=== PATIENT | male | born 1955 | race Caucasian/White ===

== ENCOUNTER 2024-02-14 16:23 | Emergency (ER) | payer MEDICARE ==
--- NOTE | 2024-02-14 16:51 | ED ---
Male Urogenital HPI - General Chief complaint: Urogenital Stated complaint: Post-op pain Time Seen by Provider: 02/14/24 16:40 Source: patient, RN notes reviewed Mode of arrival: ambulatory Limitations: no limitations - History of Present Illness Initial comments: 68-year-old male presenting with urinary retention x 5 hours. States he had a CT scan where he had to drink oral contrast at about 1:00 today. States since he drink the contrast he has not been able to urinate. States this has happened several times before and states he needs a catheter to relieve the bladder. Denies any other symptoms or health conditions. - Related Data Allergies Allergy/AdvReac Type Severity Reaction Status Date / Time No Known Allergies Allergy Verified 02/14/24 16:26 Review of Systems ROS Statement: Those systems with pertinent positive or pertinent negative responses have been documented in the HPI. ROS Other: All systems not noted in ROS Statement are negative. Past Medical History Smoking Status: Never smoker Past Alcohol Use History: None Reported Past Drug Use History: None Reported General Exam Limitations: no limitations General appearance: alert, in no apparent distress Head exam: Present: atraumatic, normocephalic, normal inspection Respiratory exam: Present: normal lung sounds bilaterally. Absent: respiratory distress, wheezes, rales, rhonchi, stridor Cardiovascular Exam: Present: regular rate, normal rhythm, normal heart sounds. Absent: systolic murmur, diastolic murmur, rubs, gallop, clicks GI/Abdominal exam: Present: soft, normal bowel sounds. Absent: distended, tenderness, guarding, rebound, rigid Neurological exam: Present: alert, oriented X3 Psychiatric exam: Present: normal affect, normal mood Skin exam: Present: warm, dry, intact, normal color. Absent: rash Course Vital Signs 02/14/24 16:23 Temperature 98.7 F Pulse Rate 90 Respiratory 18 Rate Blood Pressure 176/68 O2 Sat by Pulse 97 Oximetry Medical Decision Making - Medical Decision Making Was pt. sent in by a medical professional or institution (, PA, [employer], urgent care, hospital, or jail...) When possible be specific @ -No Did you speak to anyone other than the patient for history (EMS, parent, family, police, friend...)? What history was obtained from this source @ -Patient's supplemented history Did you review nursing and triage notes (agree or disagree)? Why? @ -I reviewed and agree with nursing and triage notes Were old charts reviewed (outside hosp., previous admission, EMS record, old EKG, old radiological studies, urgent care reports/EKG's, jail records)? Report findings @ -No old charts were reviewed Differential Diagnosis (chest pain, altered mental status, abdominal pain women, abdominal pain men, vaginal bleeding, weakness, fever, dyspnea, syncope, headache, dizziness, GI bleed, back pain, seizure, CVA, palpatations, mental health, musculoskeletal)? @ -Urinary retention, urinary tract infection, BPH EKG interpreted by me (3pts min.). @ -None X-rays interpreted by me (1pt min.). @ -None done CT interpreted by me (1pt min.). @ -None done U/S interpreted by me (1pt. min.). @ -None done What testing was considered but not performed or refused? (CT, X-rays, U/S, labs)? Why? @ -Patient declines bladder scan or labs at this time. Patient states this happens often and he only needs a catheter What meds were considered but not given or refused? Why? @ -None Did you discuss the management of the patient with other professionals (professionals i.e. , PA, [employer], lab, RT, psych nurse, transition social worker, seafood process worker, teacher, physics technical officer, leather case finisher)? Give summary @ -No Was smoking cessation discussed for >3mins.? @ -No Was critical care preformed (if so, how long)? @ -No Were there social determinants of health that impacted care today? How? (Homelessness, low income, unemployed, alcoholism, drug addiction, transportation, low edu. Level, literacy, decrease access to med. care, snf, rehab)? @ -No Was there de-escalation of care discussed even if they declined (Discuss DNR or withdrawal of care, Hospice)? DNR status @ -No What co-morbidities impacted this encounter? (DM, HTN, Smoking, COPD, CAD, Cancer, CVA, ARF, Chemo, Hep., AIDS, mental health diagnosis, sleep apnea, morbid obesity)? @ -None Was patient admitted / discharged? Hospital course, mention meds given and route, prescriptions, significant lab abnormalities, going to OR and other pertinent info. @ -Patient was discharged. Patient was seen and evaluated for urinary retention x 5 hours status post drinking oral contrast for CT scan. No red flag symptoms present upon examination. Alonzo catheter placed and approximately 800 mL of urine was expelled. Patient has urology appointment in 4 days, advised to attend appointment. Patient would like to be discharged at this time with catheter. Strict return/alarm symptoms discussed with patient in detail and patient shows understanding and agrees with plan. Patient discharged in stable condition. Case discussed with Dr. Rehman Undiagnosed new problem with uncertain prognosis? @ -No Drug Therapy requiring intensive monitoring for toxicity (Heparin, Nitro, Insulin, Cardizem)? @ -No Were any procedures done? @ -No Diagnosis/symptom? @ -Urinary retention Acute, or Chronic, or Acute on Chronic? @ -Acute Uncomplicated (without systemic symptoms) or Complicated (systemic symptoms)? @ -Uncomplicated Side effects of treatment? @ -No Exacerbation, Progression, or Severe Exacerbation? @ -No Poses a threat to life or bodily function? How? (Chest pain, [place], [place], pneumonia, PE, COPD, DKA, ARF, appy, cholecystitis, CVA, Diverticulitis, Homicidal, Suicidal, threat to staff... and all critical care pts) @ -Low likelihood Disposition Clinical Impression: Urinary retention Disposition: HOME SELF-CARE Condition: Stable Instructions (If sedation given, give patient instructions): Urinary Retention in Men (ED) Additional Instructions: Please follow-up for urology appointment on Saturday. Please return to the Emergency Department if symptoms worsen or any other concerns. Is patient prescribed a controlled substance at d/c from ED?: No Referrals: Yoseph Ramirez MD [Primary Care Provider] - 1-2 days Time of Disposition: 18:08
[2024-02-14 17:30] VITALS: RESP 18
[2024-02-14 18:59] VITALS: BP 150/87; PULSE 88; TEMP 98.6
== END 2024-02-14 18:34 | disposition home or self-care (01) ==
LOC: EC 16:23
DX: R33.9 Retention of urine, unspecified (principal)
CPT/HCPCS: 51702; 51798; 99283

== ENCOUNTER → 2024-02-14 | Outpatient (CLI) | payer MEDICARE ==
[2024-02-14 13:45] LABS: African American GFR (CKD) >90 (>60 ml/min/1.73 sqM); Blood Urea Nitrogen 15 mg/dL (9-20); Non-African American GFR(CKD) >90 (>60 ml/min/1.73 sqM)
--- NOTE | 2024-02-14 15:31 | CT ---
EXAMINATION TYPE: CT abdomen pelvis wo/w con DATE OF EXAM: 02/14/2024 COMPARISON: NONE HISTORY: 68-year-old male R31.0 BLADDER STONES AND GROSS HEMATURIA. TECHNIQUE: Contiguous axial scanning of the abdomen and pelvis before and after administration of 100 ml Isovue 300 IV contrast. Delayed images through the kidneys and coronal/sagittal reconstructions performed. CT DLP: 4281.70 mGycm Automated exposure control for dose reduction was used. FINDINGS: Heart normal size of the pericardial effusion. There is some pleural parenchymal scarring a t the left base. Nodular subpleural density here measures 1.9 cm it represent rounded atelectasis. Fo llow-up in 3 months to exclude the possibility of neoplasm. Postsurgical change of Nathalia-en-Y gastric bypass. Liver mildly enlarged at 18.0 cm. No focal liver lesion. Portal venous system is patent. No biliary d uctal dilatation. Gallbladder is mildly hydropic at 4.1 cm wide but without any wall thickening or pringle rrounding inflammation. Findings likely due to fasting state. Clinically correlate. Adrenal glands, spleen, and atrophic pancreas show no gross abnormality. A couple benign renal cortical cysts right kidney measuring 2.3 cm and 1.0 cm. Suspect a couple tiny renal cortical cysts on the left measuring up to 8 mm as well but too small for accurate CT character ization. No nephrolithiasis or hydronephrosis. No dilated small bowel, free fluid, or free air. No mesenteric or retroperitoneal lymphadenopathy. Normal appendix. Scattered moderate stool without pericolonic inflammatory change. Bladder urine distended with numerous dependent bladder stones measuring up to 1.1 cm. Prostate gland is enlarged measuring 6.5 cm wide. A few pelvic phleboliths. No abnormal fluid collection in the pel vis or pelvic lymphadenopathy seen. Bones: DISH within the lower thoracic spine. 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 Degenerative trace grade 1 anterolisthesis L4-L5. IMPRESSION: 1. NO NEPHROLITHIASIS OR HYDRONEPHROSIS. A FEW SCATTERED BENIGN RENAL CORTICAL CYSTS MEASURING UP TO 2.3 CM. 2. MARKED PROSTATOMEGALY UP TO 6.5 CM. Correlate with PSA values and patient's symptoms. 3. A number of dependent bladder stones measuring up to 1.1 cm. 4. Some pleural parenchymal scarring at the left base. A rounded subpleural opacity here measures 1.9 cm and may represent rounded atelectasis. Three-month follow-up CT chest to ensure stability and exc lude a neoplastic etiology.
== END | disposition home or self-care (01) ==
LOC: RADCTMAIN 12:49
PROVIDERS: ATTEND Urology
DX: N28.1 Cyst of kidney, acquired (principal); N40.0 Benign prostatic hyperplasia without lower urinary tract symptoms; N21.0 Calculus in bladder; R31.0 Gross hematuria
CPT/HCPCS: 82565; 84520; 74178; 36415; Q9967

== ENCOUNTER → 2024-03-04 | Outpatient (CLI) | payer MEDICARE ==
[2024-03-04 15:14] LABS: Basophils # (A) 0.05 X 10*3/uL (0.00-0.10); Basophils % (A) 0.7 %; Eosinophils # (A) 0.18 X 10*3/uL (0.04-0.35); Eosinophils % (A) 2.5 %; HCT 51.2 % (37.2-50.0); HGB 16.1 g/dL (12.0-17.0); Lymphocytes # (A) 1.61 X 10*3/uL (0.90-5.00); Lymphocytes % (A) 22.5 %; MCH 26.7 pg (27.0-32.0); MCHC 31.4 g/dL (32.0-37.0); MCV 84.8 FL (80.0-97.0); Mean Platelet Volume 11.1 FL (9.5-12.2); Monocytes # (A) 0.54 X 10*3/uL (0.20-1.00); Monocytes % (A) 7.6 %; NRBC Per 100 WBC 0 X 10*3/uL (0.00-0.01); Neutrophils # (A) 4.74 X 10*3/uL (1.80-7.70); Neutrophils % (A) 66.4 %; Platelet Count 240 X 10*3/uL (140-440); RBC 6.04 X 10*6/uL (4.10-5.60); RDW 14.4 % (11.5-14.5); WBC 7.14 X 10*3/uL (4.50-10.00)
[2024-03-04 15:25] LABS: BUN/Creat Ratio 24.88 Ratio (12.00-20.00); Blood Urea Nitrogen 19.9 mg/dL (9.0-27.0); Calcium 9.3 mg/dL (8.7-10.3); Carbon Dioxide 25.8 mmol/L (21.6-31.8); Chloride 102 mmol/L (96-109); Glucose 162 mg/dL (70-110); Potassium 4.5 mmol/L (3.5-5.5); Sodium 138 mmol/L (135-145)
--- NOTE | 2024-03-04 18:24 | MR ---
EXAMINATION TYPE: MR Prostate wo/w con DATE OF EXAM: 03/04/2024 7:54 AM COMPARISON: None. CLINICAL INDICATION:Male, 68 years old with history of R97.20 ELEVATED PSA; Elevated PSA TECHNIQUE: Multi-planar, multi-sequence imaging of the pelvis is performed prior to and following the uncomplicated administration of bolus intravenous gadolinium. CONTRAST: 11 Gadavist Interpretive Criteria: PI-RADS v2.1 SERUM PSA: PSA-=1.3, =0.9 SURGICAL PATHOLOGY: No data available. FINDINGS: Prostatic dimensions: 6.7 x 6.5 x 5.1 cm. Ellipsoid Volume:116.29 (PSA density=0.01 ng/mL/mL) CENTRAL GLAND (Central and Transition Zones/CZ+TZ): Multiple bilateral, heterogenous appearing hypertrophic stromal nodules, without suspicious lesion. M edian lobe hypertrophy with protrusion into the base of the bladder. (PI-RADS 2) PERIPHERAL ZONE (PZ): Bilateral linear, indistinct wedgelike areas of low ADC, and low T2 signal, No evidence of masslike a bnormality, or localized perfusional hypervascularity, to further suggest a focus of clinically signi ficant prostate cancer. (PI-RADS 2) SEMINAL VESICLES (SV): Symmetric and unremarkable. PERIPROSTATIC TISSUES: Unremarkable. LYMPH NODES: No enlarged pelvic lymph node. REMAINING PELVIS: Bladder wall is within normal limits given distention. Multiple bladder stones are seen in the bladde r lumen. No abnormal free or organized intrapelvic fluid collection. No pathologic bowel dilation or mural thickening. Colonic diverticula are present. No hernia visualized OSSEOUS STRUCTURES: No suspicious osseous abnormality. IMPRESSION: 1. No specific features for high-risk prostate cancer. Maximum PI-RADS score: 2. 2. Substantial BPH, estimated gland volume 116.29 (mL. 3. No suspicious osseous lesion. No lymphadenopathy. No evidence of prostate adenocarcinoma involving the periprostatic tissues. 4. Colonic diverticulosis. 5. Bladder stones.
== END | disposition home or self-care (01) ==
LOC: RADMRIMAIN 06:23
PROVIDERS: ATTEND Urology
DX: K57.30 Diverticulosis of large intestine without perforation or abscess without bleeding (principal); R97.20 Elevated prostate specific antigen [PSA]; N21.0 Calculus in bladder; N40.0 Benign prostatic hyperplasia without lower urinary tract symptoms
CPT/HCPCS: 80048; 85025; 87086; 72197; 36415; A9585

== ENCOUNTER 2024-03-12 05:52 | Day surgery (SDC) | payer MEDICARE ==
--- NOTE | 2024-03-09 22:26 | P.GSHP ---
History of Present Illness H&P Date: 03/09/24 Chief Complaint: Gross hematuria Patient is a 68-year-old white male with obstructive voiding symptoms. He has experienced intermittent gross hematuria for the past year, which he notes with activity particularly riding a lawnmower. CT scan shows bilateral renal cysts and bladder calculi measuring up to 11 mm in size. - Genitourinary (Male) Genitourinary: Reports dysuria, Reports hematuria, Reports urinary frequency Past Medical History Smoking Status: Never smoker Past Alcohol Use History: None Reported Past Drug Use History: None Reported Medications and Allergies Allergies Allergy/AdvReac Type Severity Reaction Status Date / Time No Known Allergies Allergy Verified 02/14/24 16:26 Surgical - Exam - General well developed, well nourished, no distress - Respiratory normal respiratory effort (The gait is working so hard to) - Abdomen Abdomen: soft, non tender, no guarding, no rigid, no rebound - Genitourinary normal penis with no external lesions, testicles non-tender (Hi) - Psychiatric oriented to time, oriented to person, oriented to place, speech is normal, memory intact Results - Imaging CT scan - abdomen: report reviewed, image reviewed Assessment and Plan (1) Calculus in bladder Status: Acute Code(s): N21.0 - CALCULUS IN BLADDER SNOMED Code(s): 81227589 Plan: Cystoscopy with cystolithotripsy. The procedure has been reviewed in detail with the patient. He has been made aware of potential risks, which include anesthesia, bleeding, infection, bladder perforation, and postoperative urinary retention
[2024-03-10 13:08] VITALS: BMI 33.0
[~2024-03-12 05:52] MED LIST: LIDOCAINE 1% (10MG/ML) FOR IV START INTRADERMA PRN
[2024-03-12 06:52] VITALS: TEMP 97.2
[2024-03-12] MEDS ORDERED: fentaNYL (PF) 50 MCG/ML 2 ML AMP IVP PRN (07:00)
[2024-03-12] MEDS ORDERED: MIDAZOLAM 2 MG/2 ML VIAL IV PRN (07:00)
[2024-03-12 07:01] LABS: Glucose,Whole Blood 146 mg/dL (70-110)
[2024-03-12] MEDS: LACTATED RINGERS 1,000 ML IV SCH (07:04)
[2024-03-12] MEDS: ONDANSETRON 4 MG/2 ML VIAL IVP ONE (07:06)
[2024-03-12] MEDS: DEXAMETHASONE SOD PHOSPHATE 4 MG/ML 1 ML VIAL IV ONE (07:06)
[2024-03-12] MEDS: IV FLUID CONTINUATION 1,000 ML IV ONE (07:11)
[2024-03-12] MEDS ORDERED: PROPOFOL 10 MG/ML 20 ML VIAL IV ONE (07:24)
[2024-03-12] MEDS ORDERED: fentaNYL (PF) 50 MCG/ML 2 ML AMP ONE (07:24)
[2024-03-12] MEDS ORDERED: FUROSEMIDE 10 MG/ML 4 ML VIAL ONE (07:24)
[2024-03-12] MEDS ORDERED: MIDAZOLAM 2 MG/2 ML VIAL ONE (07:24)
[2024-03-12] MEDS ORDERED: GLYCOPYRROLATE 0.2 MG/ML 2 ML VIAL ONE (07:24)
[2024-03-12] MEDS ORDERED: SUCCINYLCHOLINE CHLORIDE 200 MG/10 ML VIAL IV ONE (07:24)
[2024-03-12] MEDS ORDERED: LIDOCAINE 1% INJ 10MG/ML (20 ML MDV) ONE (07:24)
[2024-03-12] MEDS: LACTATED RINGERS 1,000 ML IV ONE ×2 (09:03→09:28)
--- NOTE | 2024-03-12 09:30 | P.OP ---
Date of Procedure: 03/12/24 Preoperative Diagnosis: Bladder calculi Postoperative Diagnosis: Same Procedure(s) Performed: Cystoscopy with cystolithotripsy, fulgaration of bleeders Anesthesia: CÉSAR Surgeon: Yoseph Ramirez Estimated Blood Loss (ml): 50 IV fluids (ml): 800 Pathology: other (Bladder calculus) Condition: stable Disposition: PACU Indications for Procedure: Patient is a 68-year-old white male with obstructive voiding symptoms. He has experienced intermittent gross hematuria for the past year, which he notes with activity particularly riding a lawnmower. CT scan shows bilateral renal cysts and bladder calculi measuring up to 11 mm in size. Operative Findings: BPH. Multiple bladder calculi up to 2 cm in size. Description of Procedure: The patient was taken to the operating room and placed in the dorsal lithotomy position, with legs supported in Epifanio stirrups. The external genitalia was prepped and draped sterilely. The 30 lens was used to introduce the 21-Canadian Darden cystoscopic sheath through the urethra and into the bladder under direct vision. The urethra appeared normal. The prostate showed evidence of lateral lobe enlargement, visually occluded. The bladder was examined in its entirety. The ureteral orifices appeared normal. Multiple bladder were seen measuring up to 2 cm in size. No tumors were seen. No diverticuli were seen. Using the 1000 micron Holmium laser probe, lithotripsy was performed. Lithotripsy was continued until all calculus fragments could be removed using the Freta.lá evacuator. Once this was completed, the bladder was inspected. There was no evidence of bladder perforation. Prostatic bleeders were controlled with Bovie electrocautery. A 20-Canadian Alonzo catheter was placed. The return was pink- tinged. The patient tolerated the procedure well was taken to the recovery room in stable condition.
[2024-03-12 09:37] VITALS: RESP 16
[2024-03-12] MEDS: HYDROmorphone 0.5 MG/0.5 ML SYRINGE IVP PRN (09:40)
[2024-03-12 10:35] VITALS: BP 152/65; PULSE 60
[2024-03-12] MEDS: ACETAMINOPHEN TAB 500 MG TAB PO STA (10:38)
== END 2024-03-12 10:59 | disposition home or self-care (01) ==
LOC: OR 05:52
PROVIDERS: ATTEND Urology
DX: N21.0 Calculus in bladder (principal); E11.9 Type 2 diabetes mellitus without complications; H91.90 Unspecified hearing loss, unspecified ear; Z79.899 Other long term (current) drug therapy; Z88.8 Allergy status to other drugs, medicaments and biological substances; Z91.013 Allergy to seafood
CPT/HCPCS: 52317; 82365; J2250; J0330; J1100; J1940; J0690; J2405; J2001; J3010; J2704; J1170